=== PATIENT | male | born 1955 | race Caucasian/White ===

== ENCOUNTER → 2017-10-03 | Day surgery (SDC) | payer OTHER ==
[~2017-10-03] VITALS: Ht 188 cm; Wt 111.1 kg
--- NOTE | 2017-10-03 15:55 | Operative Report ---
Operative/Inv Procedure Report Surgery Date: 10/03/17 Name of Procedure: Debridement of bone right middle finger metacarpophalangeal joint. Pre-Operative Diagnosis: Right middle finger MP joint osteoarthritis. Post-Operative Diagnosis: Same. Estimated Blood Loss: scant Surgeon/Sales Development Consultant: Vincent Roberson MD Anesthesia: laryngeal mask airway Monitors: EKG/pressure/oxygen saturation. IV Fluids: Lactated Ringer's. Implants: None. Urine Output: None. Drains: None. Specimens: 1) Soft tissue mass dorsal third metacarpal head. 2) Dorsal osteophyte third metacarpophalangeal joint. Microbiology: None. Tourniquet: 18 minutes at 275 mmHg. Complications: None known. Condition: Stable. Operative Indication: The patient is a 62-year-old male who presented to my office with complaints of right dorsal middle finger metacarpophalangeal joint pain and a tender/painful mass. There was a remote history of injury to the finger a number of years ago per the patient never sought medical attention for the same and overall did well until he started to develop symptoms within the past year. On clinical examination there was a tender mass that was located over the dorsal and radial aspect of the middle finger metacarpophalangeal joint. Initial consideration was that this could be a ganglion cyst arising from the joint. To my recollection I did perform an ultrasonographic examination which did not show the mass to be cystic. X-rays of the finger did show relatively significant irregularity of the dorsal aspect of the metacarpal head including some spur formation area the overall appearance of the finger on x-ray was that of an old/ remote healed third metacarpal head fracture towards the base of the head that had healed with some impaction resulting in dorsal "heaping" of the bone at the metacarpal head. On the other side of the joint there was slight spurring over the dorsal base of the proximal phalanx. We did discuss the risks and benefits and expected outcomes of nonoperative-noninterventional management with simple observation along with medications and modalities and activity modification. We did discuss the role of splinting. We did discuss possibly trying an intra- articular steroid injection to the metacarpophalangeal joint. Lastly, we did discuss the same with respect to surgical intervention including removal of the tender mass over the dorsal radial aspect of the MP joint as well as opening of the joint and cleaning the joint as best as possible for any debris attention clearly related to the remote trauma to the digit. We did also discuss debriding the dorsal prominent bone over the dorsal aspect of the third metacarpal head. All of the patient's questions were answered at length. After discussion of the same he did decide that he wanted to move forward with surgical intervention as opposed to any of the other options discussed. Surgical consent was obtained. Operative/Procedure Note Note: The patient was brought to the operative was snapped table in the supine position. All bony prominences were well-padded. The patient was given a dose of IV antibiotics for infection prophylaxis. Both legs were placed into calf compression sleeve to hopefully cutdown was bilateral lower extremity venous pooling and blood clot formation and propagation. A well-padded tourniquet was applied to the proximal portion of the right arm. The right upper extremity was then prepped and draped in the usual sterile fashion. The patient's right hand was marked for a dorsal radial approach to the third metacarpal phalangeal joint. The skin was marked out for a longitudinal skin incision curved around the radial side of the MP joint and then extending longitudinally along the dorsal mid axis of the base of the proximal phalanx distally and the mid axis of the distal third metacarpal proximally. After the extremity was marked the extremity was then exsanguinated and the pneumatic tourniquet was inflated to a pressure of 275 memories mercury. The skin incision was created sharply with a scalpel. Sharp dissection continued down to the skin and the subcutaneous tissues. Hemostasis was achieved with some manual pressure and electrocautery. Full-thickness skin with subcutaneous tissue flaps were raised. We did appreciate the noncystic mass over the dorsal radial aspect of the MP joint. This appeared to be a somewhat fibrotic appearing mass which was brown-garrett/yellow in color. We debrided that sharply with a scalpel through the base of this mass which was somewhat mobile but adherent at its base to the surrounding soft tissues. This mass was ultimately packaged and sent to pathology for histopathological analysis. We next divided the soft tissues down along the radial border of the tendon for the middle finger over the dorsal MP joint. This allowed us to retract the common extensor tendon in an ulnar direction. We continued to dissect deeper now through the joint capsule which was performed with a scalpel making a longitudinal capsulotomy. This now allowed us to enter the joint and to inspect the dorsal aspect of the metacarpophalangeal joint. Evaluation of the dorsal surface of the third metacarpal head and neck showed the heaped up bone that was identified on x-ray consistent with the third metacarpal head being impacted previously with a fracture into the metacarpal neck and shaft. This was quite irregular on palpation and seemed to be the case visually as well. We debrided this using an osteotome to remove the dorsal bone. This bone was also sent to pathology for documentation. We trimmed down and smoothed the base of the dorsal aspect of the third metacarpal head with accommodation of rongeurs and a bone rasp. After elevating the soft tissues off of the base of the proximal phalanx we did identify some dorsal spurring at the articular margin as well. This was debrided with rongeurs and then smoothed down with a bone rasp as well. We flexed the joint and we did inspect the articular cartilage of the metacarpophalangeal joint. There was some full thickness and near full- thickness loss in patchy distribution more towards the radial side of the metacarpal head somewhat near the equator. On the base of the proximal phalanx there was some mild partial thickness cartilage wear through the more central and radial aspect of the base of the proximal phalanx articular surface. Nothing was done about these areas of cartilage loss other than inspection for documentation. With debridement now accomplished our attention was directed towards closure. The MP joint was copiously irrigated multiple times with saline. The tourniquet was deflated and hemostasis was achieved with accommodation of manual pressure and electrocautery. The capsulotomy was repaired using 4-0 Mersilene placed in interrupted simple fashion. The extensor tendon repaired back in position over the dorsal MP joint through the soft tissue from which it was divided also using 4-0 Mersilene placed in interrupted simple fashion. The skin and subcutaneous tissues were repaired merrily using 3 -0 Prolene placed in interrupted simple fashion to approximate the skin margins. The wound was washed and dried. We applied an Adaptic dressing over the suture line. Sterile gauze fluffed dressings were placed over the dorsum of the hand as well as some fluffed dressings placed into the webspaces to either side of the third MP joint. We overwrapped the gauze dressings with gauze wrapping followed by Sterling bandages to hold the dressings in place and to provide postoperative compression. The patient was awakened from sedation. He was transferred to the stretcher and brought to the recovery room in stable condition having tolerated the procedure well.
== END ==
LOC: STS 01:58
DX: M19.141 Post-traumatic osteoarthritis, right hand (principal); M25.741 Osteophyte, right hand; M79.641 Pain in right hand; D21.11 Benign neoplasm of connective and other soft tissue of right upper limb, including shoulder; I10 Essential (primary) hypertension
CPT/HCPCS: 36415; J0690; J1100; J2250; J2405